=== PATIENT | male | born 1985 | race Caucasian/White ===

== ENCOUNTER 2020-01-21 08:41 | Emergency (ER) | payer SELFPAY ==
[~2020-01-21] VITALS: Ht 177.8 cm; Wt 82.0 kg
[2020-01-21 08:47] VITALS: BP 106/78
== END 2020-01-21 09:05 | disposition left against medical advice (07) ==
LOC: ER 08:41
DX: R05 Cough (principal); Z53.21 Procedure and treatment not carried out due to patient leaving prior to being seen by health care provider